=== PATIENT | male | born 1980 | race Caucasian/White ===

== ENCOUNTER 2020-09-18 11:15 | Emergency (ER) | payer MEDICAID ==
[~2020-09-18] VITALS: Ht 175.3 cm; Wt 81.6 kg
[2020-09-18] MEDS ORDERED: ACETAMINOPHEN 500MG TABLET PO STA (13:05)
[2020-09-18] MEDS ORDERED: TETANUS, DIPHTHERIA, PERTUSSIS VAC/PF 0.5ML (>7YR OLD) IM ONE (13:15)
[2020-09-18] MEDS ORDERED: SODIUM CHLORIDE 0.9% 1,000 ML IV ONE (13:15)
[2020-09-18 13:27] VITALS: BP 138/88
== END 2020-09-18 13:34 | disposition left against medical advice (07) ==
LOC: EDBD 11:15 → ER 12:25
DX: S01.01XA Laceration without foreign body of scalp, initial encounter (principal); Z88.2 Allergy status to sulfonamides; Z88.1 Allergy status to other antibiotic agents; Z53.29 Procedure and treatment not carried out because of patient's decision for other reasons; W18.30XA Fall on same level, unspecified, initial encounter; Y09 Assault by unspecified means; Y92.89 Other specified places as the place of occurrence of the external cause; Y99.8 Other external cause status
CPT/HCPCS: 99281; J7030

== ENCOUNTER 2020-12-07 16:00 | Emergency (ER) | payer OTHER, MEDICAID ==
[~2020-12-07] VITALS: Ht 167.6 cm; Wt 78.0 kg
[2020-12-07] MEDS ORDERED: ACETAMINOPHEN 325MG TABLET PO STA (17:03)
[2020-12-07] MEDS ORDERED: SODIUM CHLORIDE 0.9% 1,000 ML IV ONE (17:30)
[2020-12-07 18:09] LABS: CHLORIDE 111 mEq/L (98-107); HEMATOCRIT 46.7 % (42.0-52.0); HEMOGLOBIN 15.5 g/dL (14.0-18.0); MEAN CORPUSCULAR HEMOGLOBIN 29.9 pg (28.0-32.0); MEAN CORPUSCULAR VOLUME 89.7 fL (80.0-94.0); PLATELET 301 x1000/uL (130-400); RED CELL DISTRIBUTION WIDTH 13.7 % (11.6-14.6)
[2020-12-07 18:18] LABS: CREATINE KINASE 443 IU/L (39-308)
[2020-12-07 20:30] VITALS: BP 119/89
== END 2020-12-07 20:30 | disposition home or self-care (01) ==
LOC: ER 16:00
DX: F15.10 Other stimulant abuse, uncomplicated (principal); R51.9 Headache, unspecified; E86.0 Dehydration; F17.290 Nicotine dependence, other tobacco product, uncomplicated; F12.10 Cannabis abuse, uncomplicated; F31.9 Bipolar disorder, unspecified; F20.9 Schizophrenia, unspecified; Z88.2 Allergy status to sulfonamides
CPT/HCPCS: 36415; 70450; 80053; 82550; 85027; 93005; 96360; 99285; J7030

== ENCOUNTER 2021-10-07 01:00 | Emergency (ER) | payer MEDICAID ==
[~2021-10-07] VITALS: Ht 172.7 cm; Wt 62.0 kg
[2021-10-07] MEDS ORDERED: SODIUM CHLORIDE 0.9% 1,000 ML IV ONE (01:45)
[2021-10-07 01:54] LABS: BASOPHILS % 0.9 % (0.0-2.0); EOSINOPHILS % 1.5 % (0.0-5.0); HEMATOCRIT. 40.4 % (42.0-52.0); HEMOGLOBIN. 13.6 g/dL (14.0-18.0); LYMPHOCYTES % 27.4 % (20.0-50.0); MEAN CORPUSCULAR HEMOGLOBIN 30.2 pg (28.0-32.0); MEAN CORPUSCULAR VOLUME 89.8 fL (80.0-94.0); MEAN PLATELET VOLUME 7.8 fl (7.4-10.4); MONOCYTES % 12.7 % (2.0-8.0); NEUTROPHILS % 57.5 % (40.0-76.0); PLATELET 290 x1000/uL (130-400); RED CELL DISTRIBUTION WIDTH 13.2 % (11.6-14.6)
[2021-10-07 01:58] LABS: CHLORIDE 108 mEq/L (98-107)
[2021-10-07 02:02] LABS: ETHANOL BLOOD < 10 mg/dL
[2021-10-07 06:30] VITALS: BP 122/73
== END 2021-10-07 06:54 | disposition home or self-care (01) ==
LOC: ER 01:00
DX: G92.9 Unspecified toxic encephalopathy (principal); R00.0 Tachycardia, unspecified; F12.10 Cannabis abuse, uncomplicated; F15.10 Other stimulant abuse, uncomplicated; Z88.2 Allergy status to sulfonamides; Z88.8 Allergy status to other drugs, medicaments and biological substances
CPT/HCPCS: 36415; 80053; 80307; 80320; 80329; 82962; 85025; 96360; 99284; J7030; G0480

== ENCOUNTER 2022-01-08 20:09 | Emergency (ER) | payer MEDICAID ==
[~2022-01-08] VITALS: Ht 172.7 cm; Wt 80.0 kg
[2022-01-08] MEDS ORDERED: LORAZEPAM 2MG/ML CPJ IV STA (20:35)
[2022-01-08] MEDS ORDERED: SODIUM CHLORIDE 0.9% 1,000 ML IV ONE (20:45)
[2022-01-09] MEDS ORDERED: DEXT 5%/0.9% NACL 1,000 ML IV ONE (02:00)
[2022-01-09 05:18] VITALS: BP 118/78
== END 2022-01-09 05:20 | disposition home or self-care (01) ==
LOC: ER 20:09
DX: F19.10 Other psychoactive substance abuse, uncomplicated (principal); F15.10 Other stimulant abuse, uncomplicated; F20.9 Schizophrenia, unspecified; F31.9 Bipolar disorder, unspecified; F12.10 Cannabis abuse, uncomplicated; Z88.3 Allergy status to other anti-infective agents; Z88.2 Allergy status to sulfonamides
CPT/HCPCS: 71045; 82962; 93005; 99285; J7030; J7042